=== PATIENT | male | born 1975 | race Caucasian/White ===

== ENCOUNTER 2019-06-27 00:29 | Inpatient (IN) | payer MEDICAID, OTHER ==
[~2019-06-27] VITALS: Ht 182.9 cm; Wt 78.5 kg
[2019-06-27 03:03] LABS: AMPHET/METH SCREEN,URINE NEGATIVE (NEGATIVE); BARBITURATE SCREEN, URINE NEGATIVE (NEGATIVE); BENZODIAZEPINES SCREEN,URINE NEGATIVE (NEGATIVE); CANNABINOID SCREEN,URINE NEGATIVE (NEGATIVE); COCAINE SCREEN,URINE NEGATIVE (NEGATIVE); METHADONE SCREEN, URINE NEGATIVE (NEGATIVE); OPIATE SCREEN,URINE NEGATIVE (NEGATIVE)
[2019-06-27 03:04] LABS: PHENCYCLIDINE SCREEN,URINE NEGATIVE (NEGATIVE)
[2019-06-27] MEDS ORDERED: HALOPERIDOL 5 MG TABLET PO PRN (03:15)
[2019-06-27 04:17] LABS: BASOPHILS % (AUTO) 0.5 % (0.0-2.0); EOSINOPHILS % (AUTO) 0.6 % (1.0-6.0); HEMATOCRIT 40.7 % (41-53); HEMOGLOBIN 13.6 g/dL (13.5-17.5); LYMPHOCYTES # (AUTO) 1.9 K/uL (1.0-4.8); LYMPHOCYTES % (AUTO) 18.1 % (22.0-44.0); MEAN CORPUSCULAR HEMOGLOBIN 30.1 pg (26.0-34.0); MEAN CORPUSCULAR HGB CONC 33.3 G/dL (31.0-37.0); MEAN CORPUSCULAR VOLUME 91 fL (80-100); MONOCYTES # (AUTO) 0.8 K/uL (0.1-1.0); MONOCYTES % (AUTO) 7.3 % (2.0-9.0); NEUTROPHILS # (AUTO) 7.7 K/uL (1.8-7.7); NEUTROPHILS % (AUTO) 73.5 % (40.0-70.0); PLATELET COUNT (AUTO) 337 K/uL (150-450); RED CELL DISTRIBUTION WIDTH 13.8 % (11.5-14.5)
[2019-06-27 04:26] LABS: ANION GAP 9 mmol/L (8-16); CARBON DIOXIDE 28 mmol/L (22-29); CHLORIDE 104 mmol/L (98-107); CREATININE 0.81 mg/dL (0.60-1.30); GLOMERULAR FILTR. RATE CALC > 60 mL/min (>60); GLUCOSE,RANDOM 95 mg/dL (70-110); POTASSIUM 3.3 mmol/L (3.5-5.1); SODIUM SERUM 141 mmol/L (136-145); UREA NITROGEN, BLOOD 17 mg/dL (7-18)
[2019-06-27 04:32] LABS: ALANINE AMINOTRANSFERASE 27 U/L (12-78); ALBUMIN 3.8 g/dL (3.4-5.0); ALKALINE PHOSPHATASE 65 U/L (46-116); ASPARTATE AMINOTRANSFERASE 21 U/L (15-37); BILIRUBIN,TOTAL 0.3 mg/dL (0.1-1.0); TOTAL PROTEIN, SERUM 7.5 g/dL (6.4-8.2)
[2019-06-27] MEDS ORDERED: ALBUTEROL SULFATE HFA 90 MCG/PUFF 8 GM INHALER IH PRN (18:30)
[2019-06-27] MEDS ORDERED: PETROLATUM,WHITE 28 GM JELLY TP PRN (18:30)
[2019-06-27] MEDS ORDERED: DOCUSATE SODIUM 100 MG CAPSULE PO PRN (18:30)
[2019-06-27] MEDS ORDERED: NICOTINE 14 MG/24 HOUR PATCH TD PRN (18:30)
[2019-06-27] MEDS ORDERED: MAGNESIUM HYDROXIDE SUSPENSION 30 ML UDCUP PO PRN (18:30)
[2019-06-27] MEDS ORDERED: ACETAMINOPHEN 325 MG TABLET PO PRN (18:30)
[2019-06-27] MEDS ORDERED: LOPERAMIDE HCL 2 MG CAPSULE PO PRN (18:30)
[2019-06-27] MEDS ORDERED: MAG HYDROX/AL HYDROX/SIMETH ES 30 ML SUSPENSION UDCUP PO PRN (18:30)
[2019-06-27] MEDS ORDERED: CloNIDine HCL 0.1 MG TABLET PO PRN (18:30)
[2019-06-27] MEDS ORDERED: IBUPROFEN 400 MG TABLET PO PRN (18:30)
[2019-06-27] MEDS ORDERED: LORazepam 2 MG/ML VIAL IM ONE (18:45)
[2019-06-27] MEDS ORDERED: DiphenhydrAMINE HCL 50 MG/ML VIAL IM ONE (18:45)
[2019-06-27] MEDS ORDERED: HALOPERIDOL LACTATE 5 MG/ML VIAL IM ONE (18:45)
[2019-06-27] MEDS ORDERED: POTASSIUM CHLORIDE 20 MEQ ER TABLET PO ONE (20:30)
[2019-06-28 17:26] VITALS: BP 114/76
[2019-06-28] MEDS: LORazepam 2 MG TABLET PO PRN (17:38)
[2019-06-29 05:40] VITALS: BP 126/87
[2019-06-29 08:21] VITALS: BP 101/62
[2019-06-29] MEDS: OLANZapine 5 MG TABLET PO SCH ×2 (10:35→16:42)
[2019-06-29 16:03] VITALS: BP 134/50
[2019-06-29] MEDS: LORazepam 2 MG TABLET PO PRN (16:42)
[2019-06-30 05:43] VITALS: BP 117/66
[2019-06-30 08:05] VITALS: BP 105/69
[2019-06-30] MEDS: OLANZapine 5 MG TABLET PO SCH ×2 (08:30→16:05)
[2019-06-30 16:07] VITALS: BP 118/85
[2019-07-01 00:15] VITALS: BP 112/80
[2019-07-01] MEDS: ZOLPIDEM TARTRATE 10 MG TABLET PO PRN (00:18)
[2019-07-01] MEDS: GuaiFENesin/D-METHORPHAN [SUGAR-FREE] 200-20MG/10 ML SYRUP UDCUP PO PRN (00:18)
[2019-07-01] MEDS: NICOTINE POLACRILEX 2 MG LOZENGE PO PRN ×3 (05:09→23:03)
[2019-07-01 07:59] VITALS: BP 122/76
[2019-07-01] MEDS: OLANZapine 5 MG TABLET PO SCH ×2 (08:17→16:16)
[2019-07-01] MEDS: LORazepam 2 MG TABLET PO PRN (16:16)
[2019-07-01 16:19] VITALS: BP 130/88
[2019-07-02] MEDS: GuaiFENesin/D-METHORPHAN [SUGAR-FREE] 200-20MG/10 ML SYRUP UDCUP PO PRN ×2 (02:12→20:43)
[2019-07-02] MEDS: ZOLPIDEM TARTRATE 10 MG TABLET PO PRN ×2 (02:12→20:43)
[2019-07-02 06:03] VITALS: BP 110/77
[2019-07-02] MEDS: NICOTINE POLACRILEX 2 MG LOZENGE PO PRN ×3 (06:58→17:29)
[2019-07-02 08:22] VITALS: BP 133/65
[2019-07-02] MEDS: OLANZapine 5 MG TABLET PO SCH ×2 (08:27→16:29)
[2019-07-02 16:00] VITALS: BP 135/83
[2019-07-02] MEDS: LORazepam 2 MG TABLET PO PRN ×2 (17:30→23:53)
[2019-07-03 00:01] VITALS: BP 111/75
[2019-07-03] MEDS: NICOTINE POLACRILEX 2 MG LOZENGE PO PRN ×3 (06:25→22:15)
[2019-07-03 08:23] VITALS: BP 112/75
[2019-07-03] MEDS: OLANZapine 5 MG TABLET PO SCH ×2 (09:08→16:45)
[2019-07-03 16:06] VITALS: BP 120/68
[2019-07-03] MEDS: LORazepam 2 MG TABLET PO PRN (16:44)
[2019-07-04] MEDS: GuaiFENesin/D-METHORPHAN [SUGAR-FREE] 200-20MG/10 ML SYRUP UDCUP PO PRN (03:44)
[2019-07-04 04:50] VITALS: BP 127/77
[2019-07-04 08:07] VITALS: BP 109/71
[2019-07-04] MEDS: OLANZapine 5 MG TABLET PO SCH ×2 (08:37→16:56)
[2019-07-04] MEDS: NICOTINE POLACRILEX 2 MG LOZENGE PO PRN (16:56)
[2019-07-04 19:25] VITALS: BP 121/76
[2019-07-05 05:16] VITALS: BP 101/66
[2019-07-05] MEDS: NICOTINE POLACRILEX 2 MG LOZENGE PO PRN ×2 (05:56→14:11)
[2019-07-05 08:04] VITALS: BP 126/69
[2019-07-05] MEDS: OLANZapine 5 MG TABLET PO SCH ×2 (08:48→16:43)
[2019-07-05 16:05] VITALS: BP 128/83
[2019-07-06 01:56] VITALS: BP 108/68
[2019-07-06] MEDS: GuaiFENesin/D-METHORPHAN [SUGAR-FREE] 200-20MG/10 ML SYRUP UDCUP PO PRN (04:25)
[2019-07-06] MEDS: NICOTINE POLACRILEX 2 MG LOZENGE PO PRN ×2 (05:33→15:37)
[2019-07-06 08:00] VITALS: BP 106/64
[2019-07-06] MEDS: OLANZapine 5 MG TABLET PO SCH ×2 (08:55→16:45)
[2019-07-06 16:09] VITALS: BP 140/93
[2019-07-06] MEDS: LORazepam 2 MG TABLET PO PRN (16:45)
[2019-07-06] MEDS: ZOLPIDEM TARTRATE 10 MG TABLET PO PRN (20:56)
[2019-07-07] MEDS: GuaiFENesin/D-METHORPHAN [SUGAR-FREE] 200-20MG/10 ML SYRUP UDCUP PO PRN (00:32)
[2019-07-07 03:00] VITALS: BP 100/68
[2019-07-07] MEDS: NICOTINE POLACRILEX 2 MG LOZENGE PO PRN ×2 (05:35→12:21)
[2019-07-07 08:05] VITALS: BP 125/75
[2019-07-07] MEDS ORDERED: OLAN5TAB27 PO (09:33)
[2019-07-07] MEDS: OLANZapine 5 MG TABLET PO SCH (09:54)
== END 2019-07-07 14:30 | disposition home or self-care (01) | DRG 750 ==
LOC: EMS 00:31 → B3A 06-28 17:10
PROVIDERS: ADMIT Psychiatry & Neurology Psychiatry; ATTEND Psychiatry & Neurology Psychiatry
DX: F25.0 Schizoaffective disorder, bipolar type (principal); Z59.0 Homelessness; E87.6 Hypokalemia; F19.10 Other psychoactive substance abuse, uncomplicated
CPT/HCPCS: 84132; 87081; G0480; J1200; J1630; J2060

== ENCOUNTER 2025-06-21 23:15 | Emergency (ER) | payer MEDICAID, OTHER ==
[~2025-06-21] VITALS: Ht 182.9 cm; Wt 90.9 kg
[~2025-06-21 23:15] MED LIST: OLAN10TA74 PO
[2025-06-22 00:31] VITALS: BP 130/109; PULSE 133; RESP 19; TEMP 98.4; O2SAT 99
[2025-06-22 00:46] LABS: COVID AG,FIA SOURCE NASAL SWAB
[2025-06-22 01:05] LABS: SARS-COV2 (COVID) ANTIGEN,FIA Negative (Negative)
== END 2025-06-22 03:28 | disposition home or self-care (01) ==
LOC: EMS 06-22 00:21
DX: F25.9 Schizoaffective disorder, unspecified (principal); F15.90 Other stimulant use, unspecified, uncomplicated; F31.9 Bipolar disorder, unspecified; Z79.899 Other long term (current) drug therapy; Z20.822 Contact with and (suspected) exposure to COVID-19
CPT/HCPCS: 99285; Z7502; Z7610